=== PATIENT | female | born 1975 ===

== ENCOUNTER 2023-01-28 08:51 | Outpatient (CLI) | payer BC | END 2023-01-28 08:52 | disposition home or self-care (01) | LOC: BICRAD 08:51 | PROVIDERS: ATTEND Family Medicine | DX: R07.89 Other chest pain (principal); F17.210 Nicotine dependence, cigarettes, uncomplicated; M41.84 Other forms of scoliosis, thoracic region | CPT/HCPCS: 71046; 72072 ==